=== PATIENT | female | born 1960 | race Caucasian/White ===

== ENCOUNTER 2024-12-20 06:21 | Day surgery (SDC) | payer OTHER, SELFPAY | END 2024-12-20 12:42 | disposition home or self-care (01) | LOC: GI 06:21 | PROVIDERS: ATTENDING PHYSICIAN Internal Medicine Gastroenterology | DX: Z12.11 Encounter for screening for malignant neoplasm of colon (principal); K64.8 Other hemorrhoids; D12.0 Benign neoplasm of cecum; K63.5 Polyp of colon; K63.3 Ulcer of intestine; Z86.0100 Personal history of colon polyps, unspecified | CPT/HCPCS: 45385; 45380; 88305 ==